=== PATIENT | female | born 1945 | race Caucasian/White ===

== ENCOUNTER → 2023-10-24 08:21 | Outpatient (REF) | payer MEDICARE, OTHER, SELFPAY ==
[2023-10-24 09:47] LABS: % Basophils 1.6 % (0-2); % Eosinophils 3.9 % (0-6); % Immature Granulocytes 0.2 % (0-0.5); % Lymphocytes 41.2 % (20.5-51.1); % Monocytes 8.5 % (1.7-9.3); % Neutrophils 44.6 % (42.2-75.2); Absolute Basophils 0.1 10^3/uL (0-0.2); Absolute Eosinophils 0.2 10^3/uL (0-0.7); Absolute Lymphocytes 2.5 10^3/uL (1.2-3.4); Absolute Monocytes 0.5 10^3/uL (0.1-0.6); Absolute Neutrophils 2.7 10^3/uL (1.4-6.5); Hematocrit 45.5 % (37.0-47.0); Hemoglobin 14.8 g/dL (12.0-16.0); Mean Corp Hgb Conc. 32.5 g/dL (33.0-37.0); Mean Corpuscular Hgb 30.6 pg (27.0-31.0); Mean Corpuscular Volume 94.2 fL (81.0-99.0); Mean Platelet Volume 9.2 fL (7.4-10.4); Nucleated Red Blood Cells % 0 %; Platelet Count 258 10^3/uL (130-400); Red Blood Cell Count 4.83 10^6/uL (4.20-5.40); Red Cell Dist. Width 12.8 % (11.5-14.5); White Blood Cell Count 6.1 10^3/uL (4.8-10.8)
[2023-10-24 10:12] LABS: Erythrocyte Sed Rate 12 mm/hour (0-20)
[2023-10-24 10:18] LABS: ALT (SGPT) 28 U/L (0-35); AST (SGOT) 36 U/L (14-36); Albumin 4.5 g/dl (3.5-5.0); Alkaline Phosphatase 68 U/L (38-126); Blood Urea Nitrogen 21 mg/dl (7-17); Calcium 10.2 mg/dl (8.4-10.2); Carbon Dioxide 27 mmol/L (22-30); Chloride 105 mmol/L (98-107); Glucose 94 mg/dl (70-99); Potassium 4.2 mmol/L (3.5-5.1); Sodium 140 mmol/L (135-145); Total Bilirubin 0.9 mg/dl (0.2-1.3); Total Protein 7.7 g/dl (6.3-8.2); eGFR > 60.00
[2023-10-24 10:22] LABS: C-Reactive Protein < 5.00 mg/L (0.0-10.00)
[2023-10-24 11:11] LABS: Vitamin B12 > 1000 pg/ml (239-931)
[2023-10-25 23:04] LABS: Vitamin D 1,25 Dihydroxy 49.1 pg/mL (19.9-79.3)
== END ==
LOC: HWLAB 08:21
PROVIDERS: ATTENDING PHYSICIAN Internal Medicine Gastroenterology; FAMILY PHYSICIAN Family Medicine
DX: K50.10 Crohn's disease of large intestine without complications (principal)
CPT/HCPCS: 36415; 80053; 82607; 82652; 85025; 85652; 86140

== ENCOUNTER → 2023-11-11 11:29 | Outpatient (REF) | payer MEDICARE, OTHER, SELFPAY | LOC: PAVMRI 11:29 | PROVIDERS: ATTENDING PHYSICIAN Internal Medicine Gastroenterology; FAMILY PHYSICIAN Family Medicine | DX: K50.10 Crohn's disease of large intestine without complications (principal) | CPT/HCPCS: 72197; 74183; A9575 ==

== ENCOUNTER → 2024-01-10 10:23 | Outpatient (REF) | payer MEDICARE, OTHER, SELFPAY ==
[2024-01-10 11:29] LABS: % Basophils 1.6 % (0-2); % Eosinophils 1.7 % (0-6); % Immature Granulocytes 0.2 % (0-0.5); % Lymphocytes 40.8 % (20.5-51.1); % Neutrophils 45.7 % (42.2-75.2); Absolute Basophils 0.1 10^3/uL (0-0.2); Absolute Eosinophils 0.1 10^3/uL (0-0.7); Absolute Lymphocytes 2.6 10^3/uL (1.2-3.4); Absolute Monocytes 0.6 10^3/uL (0.1-0.6); Absolute Neutrophils 2.9 10^3/uL (1.4-6.5); Hematocrit 43.3 % (37.0-47.0); Hemoglobin 14.5 g/dL (12.0-16.0); Mean Corp Hgb Conc. 33.5 g/dL (33.0-37.0); Mean Corpuscular Hgb 31.3 pg (27.0-31.0); Mean Corpuscular Volume 93.5 fL (81.0-99.0); Mean Platelet Volume 9.1 fL (7.4-10.4); Nucleated Red Blood Cells % 0 %; Platelet Count 282 10^3/uL (130-400); Red Blood Cell Count 4.63 10^6/uL (4.20-5.40); Red Cell Dist. Width 13.6 % (11.5-14.5); White Blood Cell Count 6.3 10^3/uL (4.8-10.8)
[2024-01-10 11:46] LABS: ALT (SGPT) 23 U/L (0-35); AST (SGOT) 32 U/L (14-36); Albumin 4.5 g/dl (3.5-5.0); Alkaline Phosphatase 72 U/L (38-126); Blood Urea Nitrogen 21 mg/dl (7-17); Calcium 10.1 mg/dl (8.4-10.2); Carbon Dioxide 27 mmol/L (22-30); Chloride 104 mmol/L (98-107); Glucose 104 mg/dl (70-99); HDL Cholesterol 60 mg/dl; LDL Cholesterol, Calculated 104 mg/dl; Potassium 4.4 mmol/L (3.5-5.1); Sodium 143 mmol/L (135-145); Total Bilirubin 0.7 mg/dl (0.2-1.3); Total Cholesterol 186 mg/dl (50-199); Total Protein 7.3 g/dl (6.3-8.2); Triglyceride 112 mg/dl (10-149); Very Low Density Lipoprotein 22 mg/dl (0-30); eGFR > 60.00
== END ==
LOC: HWLAB 10:23
PROVIDERS: ATTENDING PHYSICIAN Family Medicine; OTHER PHYSICIAN Surgery Vascular Surgery; REFERRING PHYSICIAN Internal Medicine Gastroenterology
DX: I10 Essential (primary) hypertension (principal); K50.10 Crohn's disease of large intestine without complications; E78.00 Pure hypercholesterolemia, unspecified
CPT/HCPCS: 36415; 80053; 80061; 85025

== ENCOUNTER → 2024-01-14 14:22 | Outpatient (REF) | payer MEDICARE, OTHER, SELFPAY | LOC: HWRAD 14:22 | PROVIDERS: ATTENDING PHYSICIAN Surgery Vascular Surgery; FAMILY PHYSICIAN Family Medicine; REFERRING PHYSICIAN Internal Medicine Gastroenterology | DX: I77.3 Arterial fibromuscular dysplasia (principal) | CPT/HCPCS: 70496; 70498; Q9967 ==

== ENCOUNTER → 2024-01-23 06:21 | Day surgery (SDC) | payer MEDICARE, OTHER, SELFPAY | LOC: GI 06:21 | PROVIDERS: ATTENDING PHYSICIAN Internal Medicine Gastroenterology | DX: K50.80 Crohn's disease of both small and large intestine without complications (principal); K57.30 Diverticulosis of large intestine without perforation or abscess without bleeding; K64.8 Other hemorrhoids; Z98.0 Intestinal bypass and anastomosis status | CPT/HCPCS: 45380; 88305 ==

== ENCOUNTER → 2024-02-24 09:21 | Outpatient (REF) | payer MEDICARE, OTHER, SELFPAY | LOC: RAD 09:21 | PROVIDERS: ATTENDING PHYSICIAN Internal Medicine Gastroenterology; FAMILY PHYSICIAN Family Medicine | DX: K50.10 Crohn's disease of large intestine without complications (principal) | CPT/HCPCS: 74246; 74248 ==

== ENCOUNTER → 2024-07-02 09:53 | Outpatient (REF) | payer MEDICARE, OTHER, SELFPAY ==
[2024-07-02 13:29] LABS: C-Reactive Protein < 5.00 mg/L (0.0-10.00)
[2024-07-02 13:35] LABS: Total Iron Binding Capacity 311 ug/dl (265-497)
[2024-07-02 13:52] LABS: Erythrocyte Sed Rate 1 mm/hour (0-20)
[2024-07-02 14:04] LABS: Ferritin 44.3 ng/ml (11.1-264.0)
[2024-07-02 14:18] LABS: Vitamin B12 958 pg/ml (239-931)
[2024-07-02 19:20] LABS: Hepatitis B Surface Antigen Negative (Negative)
[2024-07-02 19:38] LABS: Hepatitis B Core Ab, Total Negative (Negative); Hepatitis B Surface Antibody Positive
[2024-07-04 12:17] LABS: Quantiferon Mitogen minus NIL 9.96 IU/mL; Quantiferon NIL 0.04 IU/mL; Quantiferon TB Gold Plus Negative (Negative)
[2024-07-05 04:13] LABS: Vitamin D 1,25 Dihydroxy 58.9 pg/mL (19.9-79.3)
== END ==
LOC: HWLAB 09:53
PROVIDERS: ATTENDING PHYSICIAN Internal Medicine Gastroenterology; FAMILY PHYSICIAN Family Medicine
DX: K50.90 Crohn's disease, unspecified, without complications (principal)
CPT/HCPCS: 36415; 82607; 82652; 82728; 83550; 85652; 86140; 86480; 86704; 86706; 87340

== ENCOUNTER → 2024-07-03 09:37 | Outpatient (REF) | payer MEDICARE, OTHER, SELFPAY | LOC: HWLAB 09:37 | PROVIDERS: ATTENDING PHYSICIAN Internal Medicine Gastroenterology; FAMILY PHYSICIAN Family Medicine | DX: K50.90 Crohn's disease, unspecified, without complications (principal) | CPT/HCPCS: 83993 ==

== ENCOUNTER → 2024-07-15 12:11 | Outpatient (REF) | payer MEDICARE, OTHER, SELFPAY ==
[2024-07-15 16:12] LABS: TSH 0.13 uIU/ml (0.47-4.68)
== END ==
LOC: HWLAB 12:11
PROVIDERS: ATTENDING PHYSICIAN Family Medicine
DX: R53.83 Other fatigue (principal)
CPT/HCPCS: 36415; 84443

== ENCOUNTER → 2024-08-25 07:26 | Outpatient (REF) | payer MEDICARE, OTHER, SELFPAY | LOC: HWRAD 07:26 | PROVIDERS: ATTENDING PHYSICIAN Family Medicine | DX: Z78.0 Asymptomatic menopausal state (principal) | CPT/HCPCS: 77080 ==

== ENCOUNTER 2024-10-06 13:53 | Emergency (ER) | payer MEDICARE, OTHER, SELFPAY ==
[2024-10-06 14:12] VITALS: BP 150/95
[2024-10-06 14:38] LABS: % Basophils 1.2 % (0-2); % Immature Granulocytes 0.1 % (0-0.5); % Lymphocytes 36.4 % (20.5-51.1); % Monocytes 9.1 % (1.7-9.3); % Neutrophils 50.2 % (42.2-75.2); Absolute Basophils 0.1 10^3/uL (0-0.2); Absolute Eosinophils 0.2 10^3/uL (0-0.7); Absolute Lymphocytes 2.7 10^3/uL (1.2-3.4); Absolute Monocytes 0.7 10^3/uL (0.1-0.6); Absolute Neutrophils 3.7 10^3/uL (1.4-6.5); Hematocrit 43.8 % (37.0-47.0); Hemoglobin 14.8 g/dL (12.0-16.0); Mean Corp Hgb Conc. 33.8 g/dL (33.0-37.0); Mean Corpuscular Hgb 31.2 pg (27.0-31.0); Mean Corpuscular Volume 92.4 fL (81.0-99.0); Mean Platelet Volume 9.2 fL (7.4-10.4); Nucleated Red Blood Cells % 0 %; Platelet Count 257 10^3/uL (130-400); Red Blood Cell Count 4.74 10^6/uL (4.20-5.40); Red Cell Dist. Width 12.5 % (11.5-14.5); White Blood Cell Count 7.4 10^3/uL (4.8-10.8)
[2024-10-06 14:49] LABS: INR 0.96; PT 13.1 Sec (11.4-14.6)
[2024-10-06 14:54] LABS: ALT (SGPT) 20 U/L (0-35); AST (SGOT) 26 U/L (14-36); Albumin 4.5 g/dl (3.5-5.0); Alkaline Phosphatase 66 U/L (38-126); Blood Urea Nitrogen 25 mg/dl (7-17); Calcium 9.9 mg/dl (8.4-10.2); Carbon Dioxide 29 mmol/L (22-30); Chloride 106 mmol/L (98-107); Glucose 101 mg/dl (70-99); Potassium 4.4 mmol/L (3.5-5.1); Sodium 139 mmol/L (135-145); Total Bilirubin 0.6 mg/dl (0.2-1.3); Total Protein 7.8 g/dl (6.3-8.2); eGFR > 60.00
[2024-10-06 15:06] LABS: Troponin I < 0.012 ng/ml
[2024-10-06 16:19] VITALS: BP 139/77
--- NOTE | 2024-10-06 16:48 | ED.GENMED ---
History of Present Illness
General
Chief Complaint: Numbness
Source: patient and spouse
Exam Limitations: none
Time Seen by Provider: 10/06/24 16:26
Nursing documentation reviewed up to this point in time: agreed with
History of Present Illness
History of Present Illness:
78-year-old female with history of CVA 30 years ago, no residual, HTN, HLD, Crohn's, bowel resection 2017 presents stating she woke at 7 AM today with left-sided neck feeling 'unusual.' She ate breakfast and around 11 AM at advent her left jaw felt
'tingly.' She states a short while later her left arm felt 'tingly' around the elbow and outer aspect of the upper arm. She called her PCP 1 PM, left the message they got back to her at 2 and told her to come here. She states her symptoms are
slowly resolving but they are all still there to a minimal degree.
She states her stroke 30 years ago from a 'left carotid artery collapsed,' from her fibromuscular dysplasia and she has been followed by Dr. Rapp initially yearly but now every 2 years, her last visit was 03/2024.
Past History
Past History
ED Past Medical History: CVA, HTN, Hypercholesterolemia and Other (Crohn's, GI bleeding, Fibromuscular dysplasia)
ED Past Surgical History: Appendectomy, Bowel resection (Colon) and
Social History
Tobacco: Non-smoker
Alcohol: None
Drug: None
Personal:
Living: with family
Employment: Retired
Review of Systems
Review of Systems
Allergies reviewed?: Yes
All Other Systems: ROS reviewed and negative except as documented in HPI and ROS
Constitutional: Denies fever, fatigue or chills
EENT: Reports other ('Unusual' feeling left side of throat and 'tingling' left jaw, both seem to be subsiding but are still there to a minimal degree); Denies sore throat
Respiratory: Denies cough or trouble breathing
Cardiac: Denies chest pain
ABD/GI: Denies abdominal pain, nausea, vomiting, diarrhea or anorexia
: Denies dysuria or difficulty voiding
Musculoskeletal: Reports no symptoms
Skin: Reports no symptoms
Neurological: Reports other ('Tingling' feeling left arm lateral aspect of elbow and distal humerus area); Denies dizzy, headache, weakness or numbness
Phy Exam
Physical Exam
Physical Exam:
GENERAL: No acute distress. A&Ox3.
CONSTITUTIONAL: Afebrile.
EYES: clear, conjunctivae normal
ENMT: moist mucus membranes, Pharynx nl
RESPIRATORY: Regular respirations, nonlabored, lungs clear.
CARDIOVASCULAR: Regular rate and rhythm, no murmurs, no rubs.
GI: Soft, nontender, normal BS
MUSCULOSKELETAL: Moves with ease. Well perfused.
SKIN: Warm, dry, pink
PSYCH: Normal mood and affect. Well kept, interactive and appropriate
NEUROLOGIC: Awake, alert and oriented. Speech clear. Cranial nerves II through XII intact. Cerebellum intact. Strength equal throughout. No focal neurological deficits
Scores
NIH Stroke Score
Level of Consciousness: 0 - Alert
LOC Questions: 0-Answers both correctly
LOC Commands: 0-Performs both correctly
Best Horizontal Gaze: 0-Normal
Visual Castro: 0=Normal, no visual loss
Facial Palsy: 0=Normal, symmetrical
Motor - Right Arm: 0=No drift 10 seconds
Motor - Left Arm: 0=No drift 10 seconds
Motor - Right Le-No drift 5 seconds
Motor - Left Le-No drift 5 seconds
Limb Ataxia: 0-Absent
Sensation: 0-Normal
Best Language: 0-No aphasia
Dysarthria: 0-Normal
Extinction and Inattention: 0-No abnormality
NIH Total Score:: 0
Course
Orders/Labs/Results
Orders:
Orders
10/06/24 14:20
EKG [Electrocardiogram (*1)] Urgent
Reason for Study: Chest Pain
CT Head W/o Iv Contrast Urgent
Comment:
Reason For Exam: left sided face decreased sensation
EKG- Treatment ONCE
10/06/24 14:33
Complete Blood Count/With Diff Urgent
Comprehensive Metabolic Panel Urgent
Prothrombin Time Urgent
Troponin I Urgent
10/06/24 17:22
CT Head & Neck Angio W/wo IV Urgent
Comment:
Reason For Exam: left neck and jaw, arm tingling
10/06/24 19:03
0.9% Sodium Chloride 1000 ml [Nss] 1,000 ml IV BOLUS
Abnormal Lab Results
10/06/24
14:33
MCH 31.2 H pg
(27.0-31.0)
Absolute Monos (auto) 0.7 H 10^3/uL
(0.1-0.6)
BUN 25 H mg/dl
(7-17)
Glucose 101 H mg/dl
(70-99)
10/06/24 14:33
10/06/24 14:33
Vital Signs
Initial and Last Documented VS:
Initial Vital Signs
Temp Pulse Resp BP Pulse Ox
97.9 F 84 17 150/95 95
10/06/24 14:12 10/06/24 14:12 10/06/24 14:12 10/06/24 14:12 10/06/24 14:12
Last Documented Vital Signs
Temp Pulse Resp BP Pulse Ox
97.9 F 61 16 130/64 92
10/06/24 14:12 10/06/24 20:01 10/06/24 18:15 10/06/24 20:02 10/06/24 17:15
MDM/Problems Addressed
Differential Diagnosis Includes:
CVA, TIA, carotid occlusion
MDM/Problems Addressed:
78-year-old female with history of CVA 30 years ago, no residual, HTN, HLD, Crohn's, bowel resection 2016 presents stating she woke at 7 AM today with left-sided neck feeling 'unusual.' She ate breakfast and around 11 AM at advent her left jaw felt
'tingly.' She states a short while later her left arm felt 'tingly' around the elbow and outer aspect of the upper arm. She called her PCP 1 PM, left the message they got back to her at 2 and told her to come here. She states her symptoms are
slowly resolving but they are all still there to a minimal degree.
She states her stroke 30 years ago from a 'left carotid artery collapsed,' from her fibromuscular dysplasia and she has been followed by Dr. Rapp initially yearly but now every 2 years, her last visit was 03/2024.
4:00 PM:
CBC normal
CMP with no clinically significant abnormality
Head CT w no acute abnormality.
7:45 p.m.
Head and Neck CTA w/w/o IV contrast: Radiology report read: IMPRESSION: No significant vascular occlusion, aneurysm or dissection.
Re demonstration of tortuous beaded appearance of the bilateral distal cervical portions of each internal carotid artery, similar to prior and suggestive of fibromuscular dysplasia.
Pt and comfortable going home after unremarkable work up. Symptoms are subsiding.
Pt stable, improving and comfortable going home.
Case discussed with Dr. Mckeon who agrees with assessment and plan.
Chronic conditions affecting care: HTN and Other (fibromuscular dysplasia)
*Critical Care Note
Total Time (30-74mins, 75-104mins- exclusive of procedures): Not Applicable
ED Attending Note
-
Portions of this chart may have been created with voice recognition software.� Occasional wrong word or��sound alike� substitutions may have occurred due to the inherent limitations of voice recognition software.
Discharge Plan
Departure
Patient Disposition: Home (Routine Discharge)
Date of Disposition: 10/06/24
Time of Disposition: 19:56
Patient with high blood pressure during this ER visit?: No
Condition: Good
Discharge Problem:
Facial paresthesia
Instructions: Paresthesia (DC)
Prescriptions:
No Action
balsalazide [Colazal] 750 MG capsule
2,250 mg PO AC
rosuvastatin 10 MG tablet
10 mg PO Q48H
coenzyme [id number] 1 CAP capsule
1 cap PO DAILY
High Potency Probiotic 1 CAP capsule
1 cap PO DAILY
Metamucil Fiber (aspartame) 1 PACKET powder in packet
2 tsp PO DAILY
losartan 50 MG tablet
100 mg PO HS Qty: 0 0RF
Rx Instructions:
DO NOT RESUME UNTIL DISCUSS BP MEASUREMENTS WITH YOUR PHYSICIAN.
aspirin 81 MG tablet,delayed release (DR/EC)
81 mg PO HS Qty: 0 0RF
Rx Instructions:
RESUME ON 10/01/21
Referrals:
Monisha Willett, DO [Family Provider, Family Practice] - Follow up in 5-7 days
Activity Restrictions/Additional Instructions:
As we discussed, your workup here today shows nothing worrisome.
See you doctor in 5-7 days if symptoms are not completely resolved.
Return here immediately for worsening symptoms or anything that worries you.
Interventions
Interventions:
*Risk Screen - Suicide Last Done: 10/06/24 14:16
*General Assessment Last Done: 10/06/24 14:16
*Neglect/Abuse Screening Last Done: 10/06/24 14:16
*ED- Fall Risk Assessment Last Done: 10/06/24 20:07
*ED COVID-19 Vaccine History Last Done: 10/06/24 14:16
*Nursing Disposition Last Done: 10/06/24 20:07
ED- Neurological Assessment Last Done: 10/06/24 18:21
Discharge Date and Time
Discharge Date/Time: 10/06/24 20:09
Print Language: CHINESE
[2024-10-06 17:00] VITALS: BP 123/65
[2024-10-06] MEDS: NSS 1000 IV (19:10)
[2024-10-06 20:02] VITALS: BP 130/64
== END 2024-10-06 20:09 | disposition home or self-care (01) ==
LOC: EMR 13:53
PROVIDERS: EMERGENCY PHYSICIAN Emergency Medicine; FAMILY PHYSICIAN Family Medicine
DX: R20.2 Paresthesia of skin (principal); I10 Essential (primary) hypertension; E78.00 Pure hypercholesterolemia, unspecified; K50.90 Crohn's disease, unspecified, without complications; Z86.73 Personal history of transient ischemic attack (TIA), and cerebral infarction without residual deficits; Z90.49 Acquired absence of other specified parts of digestive tract
CPT/HCPCS: 99284; 96360; 70450; 70496; 70498; 80053; 84484; 85025; 85610; 93005; Q9967

== ENCOUNTER → 2024-12-23 10:32 | Outpatient (REF) | payer MEDICARE, OTHER, SELFPAY ==
[2024-12-23 12:56] LABS: Hematocrit 44.7 % (37.0-47.0); Hemoglobin 14.8 g/dL (12.0-16.0); Mean Corp Hgb Conc. 33.1 g/dL (33.0-37.0); Mean Corpuscular Volume 91.0 fL (81.0-99.0); Nucleated Red Blood Cells % 0 %; Platelet Count 277 10^3/uL (130-400); Red Cell Dist. Width 12.7 % (11.5-14.5)
[2024-12-23 13:01] LABS: ALT (SGPT) 22 U/L (0-35); AST (SGOT) 30 U/L (14-36); Albumin 4.4 g/dl (3.5-5.0); Alkaline Phosphatase 60 U/L (38-126); Blood Urea Nitrogen 28 mg/dl (7-17); Calcium 9.8 mg/dl (8.4-10.2); Carbon Dioxide 28 mmol/L (22-30); Chloride 104 mmol/L (98-107); Glucose 104 mg/dl (70-99); Iron 143 ug/dl (37-170); Potassium 4.2 mmol/L (3.5-5.1); Sodium 137 mmol/L (135-145); Total Protein 7.5 g/dl (6.3-8.2); eGFR > 60.00
[2024-12-23 13:11] LABS: Total Iron Binding Capacity 314 ug/dl (265-497)
[2024-12-23 13:18] LABS: C-Reactive Protein < 5.00 mg/L (0.0-10.00)
[2024-12-23 13:29] LABS: Vitamin D, 25-OH*** 37.4 ng/mL (30-80)
[2024-12-23 13:47] LABS: Ferritin 58.5 ng/ml (11.1-264.0)
[2024-12-23 14:01] LABS: Vitamin B12 > 1000 pg/ml (239-931)
== END ==
LOC: HWLAB 10:32
PROVIDERS: ATTENDING PHYSICIAN Nurse Practitioner; FAMILY PHYSICIAN Family Medicine
DX: K50.10 Crohn's disease of large intestine without complications (principal); K50.90 Crohn's disease, unspecified, without complications
CPT/HCPCS: 36415; 80053; 82306; 82607; 82728; 83540; 83550; 85025; 85652; 86140

== ENCOUNTER → 2024-12-24 10:51 | Outpatient (REF) | payer MEDICARE, OTHER, SELFPAY | LOC: HWLAB 10:51 | PROVIDERS: ATTENDING PHYSICIAN Nurse Practitioner; FAMILY PHYSICIAN Family Medicine | DX: K50.10 Crohn's disease of large intestine without complications (principal) | CPT/HCPCS: 83993 ==

== ENCOUNTER → 2025-01-18 11:40 | Outpatient (REF) | payer MEDICARE, OTHER, SELFPAY ==
[2025-01-18 16:41] LABS: Hematocrit 43.4 % (37.0-47.0); Hemoglobin 14.4 g/dL (12.0-16.0); Mean Corp Hgb Conc. 33.2 g/dL (33.0-37.0); Mean Corpuscular Volume 92.7 fL (81.0-99.0); Nucleated Red Blood Cells % 0 %; Platelet Count 265 10^3/uL (130-400); Red Cell Dist. Width 13.0 % (11.5-14.5)
[2025-01-18 17:02] LABS: ALT (SGPT) 22 U/L (0-35); AST (SGOT) 28 U/L (14-36); Albumin 4.4 g/dl (3.5-5.0); Alkaline Phosphatase 53 U/L (38-126); Blood Urea Nitrogen 19 mg/dl (7-17); Calcium 9.9 mg/dl (8.4-10.2); Carbon Dioxide 28 mmol/L (22-30); Chloride 106 mmol/L (98-107); Glucose 102 mg/dl (70-99); HDL Cholesterol 63 mg/dl; LDL Cholesterol, Calculated 81 mg/dl; Potassium 4.5 mmol/L (3.5-5.1); Sodium 141 mmol/L (135-145); Total Protein 7.5 g/dl (6.3-8.2); Very Low Density Lipoprotein 21 mg/dl (0-30); eGFR > 60.00
== END ==
LOC: HWLAB 11:40
PROVIDERS: ATTENDING PHYSICIAN Family Medicine
DX: I10 Essential (primary) hypertension (principal); E78.00 Pure hypercholesterolemia, unspecified; R53.83 Other fatigue; Z00.00 Encounter for general adult medical examination without abnormal findings
CPT/HCPCS: 36415; 80053; 80061; 85025

== ENCOUNTER → 2025-01-26 10:10 | Outpatient (REF) | payer MEDICARE, OTHER, SELFPAY | LOC: HWRAD 10:10 | PROVIDERS: ATTENDING PHYSICIAN Family Medicine | DX: M25.511 Pain in right shoulder (principal); M89.8X2 Other specified disorders of bone, upper arm; R07.81 Pleurodynia | CPT/HCPCS: 71101; 73030; 73060 ==